=== PATIENT | female | born 1985 | race African-American/Black ===

== ENCOUNTER 2019-11-17 09:01 | Inpatient (IN) ==
[2019-11-17] MEDS ORDERED: MEPERIDINE 50 MG/1 ML VIAL IV PRN (12:24)
[2019-11-17] MEDS ORDERED: BUTORPHANOL 2 MG/ML VIAL IV PRN (12:24)
[2019-11-17] MEDS ORDERED: ONDANSETRON 4 MG/2 ML VIAL IV PRN ×3 (12:24→16:49)
[2019-11-17 13:40] LABS: Basophils % 0.3 % (0.0-0.8); Eosinophils % 0.3 % (0.00-10.9); Hematocrit 30.4 VOL% (35.7-47.0); Hemoglobin 10.1 GM/DL (12.0-16.0); Immature Granulocytes % 0.8 %; Immature Granulocytes Absolute 0.05 #; Lymphocytes # 1.2 10*3/uL (1.4-4.0); Lymphocytes % 18.5 % (21.3-54.2); Mean Corpuscular HGB Conc 33.2 GM/DL (32-36); Mean Corpuscular Volume 89.1 FL (87-102); Mean Platelet Volume 9.3 FL (9.6-12.0); Monocytes % 4.7 % (1.7-12.7); Neutrophils % 75.4 % (38.7-73.9); Platelet Count 243 T/CUMM (130-400); Red Blood Count 3.41 MC/CUMM (3.8-5.5); Red Cell Distribution Width 15.1 % (9.3-17.3); White Blood Count 6.6 T/CUMM (4-12)
[2019-11-17] MEDS ORDERED: LACTATED RINGERS 1,000 ML IV ONE (13:47)
[2019-11-17] MEDS ORDERED: FAMOTIDINE 20 MG/2 ML VIAL IV ONE (13:47)
[2019-11-17] MEDS ORDERED: PROMETHAZINE 25 MG/1 ML VIAL IM PRN (13:47)
[2019-11-17] MEDS ORDERED: NALOXONE 0.4 MG/ML VIAL IV PRN (13:47)
[2019-11-17] MEDS ORDERED: diphenhydrAMINE 50 MG/1 ML VIAL IV PRN ×2 (13:47)
[2019-11-17] MEDS ORDERED: hydrOXYzine HCL 25 MG/1 ML VIAL IM PRN (13:47)
[2019-11-17] MEDS ORDERED: ePHEDrine 50 MG/ML VIAL IV PRN (13:47)
[2019-11-17] MEDS ORDERED: CITRIC ACID/SODIUM CITRATE 30 ML UDCUP PO ONE (13:47)
[2019-11-17] MEDS: LACTATED RINGERS 1,000 ML IV SCH ×2 (13:49→13:50)
[2019-11-17] MEDS ORDERED: fentaNYL 2 MCG/ROPIV 0.2% EPID 100 ML EPIDURAL SCH (14:00)
[2019-11-17 14:15] LABS: Albumin 2.5 G/DL (3.4-5.0); Bilirubin,Total 0.7 MG/DL (0.2-1.0); Calcium 8.1 MG/DL (8.5-10.1); Osmolality,Calculated 269.8 MOS/KG (273-304); Total Protein 6.4 G/DL (6.4-8.3)
[2019-11-17] MEDS: OXYTOCIN/LR 20 UNIT/1,000 ML BAG IV SCH (15:30)
[2019-11-17] MEDS ORDERED: miSOPROStoL 200 MCG TABLET ONE (15:42)
[2019-11-17] MEDS ORDERED: TRANEXAMIC ACID 1,000 MG/10 ML VIAL ONE (15:43)
[2019-11-17] MEDS ORDERED: METHYLERGONOVINE 0.2 MG/1 ML AMP ONE (15:43)
[2019-11-17] MEDS ORDERED: OXYTOCIN/LR 20 UNIT/1,000 ML BAG IV ONE ×2 (15:43→16:49)
[2019-11-17] MEDS ORDERED: CARBOPROST TROMETHAMINE 250 MCG/ML AMP IM ONE (15:44)
[2019-11-17] MEDS ORDERED: LIDOCAINE 1% 50 ML VIAL ONE (15:44)
[2019-11-17] MEDS ORDERED: DIPH/TET/ACEL PERT BOOSTER VACCINE 0.5 ML VIAL IM ONE (16:49)
[2019-11-17] MEDS ORDERED: ACETAMINOPHEN 325 MG TABLET PO PRN (16:49)
[2019-11-17] MEDS ORDERED: BISACODYL 10 MG SUPP RECTAL PRN (16:49)
[2019-11-17] MEDS ORDERED: RHO(D) IMMUNE GLOBULIN 300 MCG SYRINGE IM ONE (16:49)
[2019-11-17] MEDS ORDERED: HYDROCORTISONE 2.5% RECTAL CREAM 30 GM TUBE TOP PRN (16:49)
[2019-11-17] MEDS ORDERED: BENZOCAINE 20%/MENTHOL 0.5% SPRAY 56 GM CAN TOP PRN (16:49)
[2019-11-17] MEDS ORDERED: MEASLES/MUMPS/RUBELLA VACCINE 0.5 ML VIAL SUBCUT ONE (16:49)
[2019-11-17] MEDS ORDERED: oxyCODONE/ACETAMINOPHEN 5-325 MG TABLET PO PRN (16:49)
[2019-11-17] MEDS ORDERED: LANOLIN 50% CREAM 0.3 OZ TUBE TOP PRN (16:49)
[2019-11-17] MEDS ORDERED: WITCH HAZEL PADS 100/JAR TOP PRN (16:49)
[2019-11-17 17:04] LABS: Cord Venous Blood PCO2 46.3 MMHG; Cord Venous Blood PO2 28.2
[2019-11-17] MEDS: IBUPROFEN 800 MG TABLET PO PRN (19:17)
[2019-11-18] MEDS: oxyCODONE/ACETAMINOPHEN 5-325 MG TABLET PO PRN ×2 (02:03→19:04)
[2019-11-18] MEDS: IBUPROFEN 800 MG TABLET PO PRN ×3 (02:03→19:05)
[2019-11-18] MEDS: DOCUSATE SODIUM 100 MG CAPSULE PO SCH ×2 (03:04→09:05)
[2019-11-18 04:49] LABS: Basophils % 0.3 % (0.0-0.8); Eosinophils # 0.1 10*3/uL (0.0-0.87); Eosinophils % 0.8 % (0.00-10.9); Hematocrit 32.8 VOL% (35.7-47.0); Hemoglobin 10.8 GM/DL (12.0-16.0); Immature Granulocytes % 0.4 %; Immature Granulocytes Absolute 0.04 #; Lymphocytes # 1.8 10*3/uL (1.4-4.0); Lymphocytes % 16.9 % (21.3-54.2); Mean Corpuscular HGB Conc 32.9 GM/DL (32-36); Mean Corpuscular Volume 87.7 FL (87-102); Mean Platelet Volume 9.4 FL (9.6-12.0); Monocytes % 6.1 % (1.7-12.7); Neutrophils % 75.5 % (38.7-73.9); Platelet Count 233 T/CUMM (130-400); Red Blood Count 3.74 MC/CUMM (3.8-5.5); Red Cell Distribution Width 15.2 % (9.3-17.3); White Blood Count 10.6 T/CUMM (4-12)
[2019-11-18] MEDS: LACTATED RINGERS 1,000 ML IV SCH (08:41)
[2019-11-18] MEDS: OXYTOCIN/LR 20 UNIT/1,000 ML BAG IV SCH (14:07)
[2019-11-19] MEDS: IBUPROFEN 800 MG TABLET PO PRN (04:15)
== END 2019-11-19 13:05 | disposition home or self-care (01) | DRG 560 ==
LOC: N.LDOUT 09:01 → N.LD 09:03
PROVIDERS: ADMIT Obstetrics & Gynecology; ATTEND Obstetrics & Gynecology